=== PATIENT | female | born 1960 | race Hispanic/Latino ===

== ENCOUNTER 2021-10-19 19:16 | Emergency (ER) | payer SELFPAY ==
[2021-10-19] MEDS ORDERED: Dextrose 50% Abboject 50 ML SYRINGE ONE ×2 (19:37→21:07)
[2021-10-19] MEDS ORDERED: Sodium Chloride 0.9% 1,000 ML ONE ×2 (19:37→20:20)
[2021-10-19] MEDS ORDERED: Acetaminophen 650 MG Suppository ONE (19:52)
[2021-10-19 19:56] LABS: Base Excess-Venous -4.9 mmol/L (-2.0 to 3.0); Bicarbonate (HCO3v) 16.4 mmol/L (22.0-28.0); CO2 Tension (PvCO2) 22.3 mmHg (42.0-51.0); Calcium, Ionized 1.05 mmol/L (1.15-1.33); Chloride 105 mmol/L (98-107); Hemoglobin - Calc 14.6 g/dL (12.0-16.0); Potassium 3.5 mmol/L (3.5-5.1); Sodium 139 mmol/L (138-145); T. Carbon Dioxide 17.1 mmol/L (22.0-28.0); vO2 Saturation-calc 91.5 % (60.0-85.0)
[2021-10-19 20:02] LABS: ALT (SGPT) 59 U/L (8-55); AST (SGOT) 166 U/L (5-34); Albumin 2.2 g/dL (3.5-5.0); Alkaline Phosphatase 288 U/L (40-110); Anion Gap 21 mmol/L (10-20); BUN (Urea Nitrogen) 29 mg/dL (9.8-20.1); Bilirubin, Total 13.7 mg/dL (0.2-1.2); Calc. Creatinine Clearance 0 mL/min (70-130); Calcium 7.9 mg/dL (7.8-10.44); Carbon Dioxide 15 mmol/L (22-29); Chloride 104 mmol/L (98-107); Globulin 4.1 g/dL (2.4-3.5); Glucose 72 mg/dL (70-105); Lipase 54 U/L (8-78); Potassium 3.5 mmol/L (3.5-5.1); Protein, Total 6.3 g/dL (6.0-8.3); Sodium 136 mmol/L (136-145)
[2021-10-19 20:10] LABS: Acetaminophen Less than 10.0 mcg/mL (10.0-30.0); Alcohol Less than 10 mg/dL (Less than 10); Salicylate Less than 8.0 mg/dL (15.0-30.0)
[2021-10-19 20:15] LABS: Hemoglobin 13.4 g/dL (12.0-16.0); Manual Diff?? YES; Mean Corpuscular Hemoglobin 32.9 pg (27.0-31.0); Mean Corpuscular Volume 99.7 fL (78.0-98.0); Mean Platelet Volume 13.4 fL (7.4-10.4); Platelet Count 70 thou/uL (130-400); RBC Distribution Width 14.2 % (11.5-14.5); Red Blood Cell (RBC) Count 4.07 mill/uL (4.20-5.40); White Blood Cell (WBC) Count 9.8 thou/uL (4.8-10.8)
[2021-10-19 20:16] LABS: Eosinophils 2 % (0-10); Lymphocytes 19 % (21-51); MDiff Complete? YES; Monocytes 2 % (0-10); Neutrophil 76 % (42-75); Platelet Morphology Comment Appears Decreased; RBC Morphology N
[2021-10-19] MEDS ORDERED: Sodium Chloride 0.9% 100 ML ONE (20:19)
[2021-10-19] MEDS ORDERED: Cefepime 2 GM VIAL ONE (20:19)
[2021-10-19 20:21] LABS: INR-International Normal Ratio 3.5; PTT 55.2 sec (22.9-36.1); Prothrombin Time 35.7 sec (12.0-14.7)
[2021-10-19] MEDS ORDERED: Vancomycin HCl 750 MG VIAL ONE (20:58)
[2021-10-19] MEDS ORDERED: Sodium Chloride 0.9% 500 ML ONE (20:59)
[2021-10-19 21:12] LABS: SARS-CoV-2 NAA Rapid Test Not Detected (NotDetected)
== END 2021-10-19 21:21 | disposition short-term general hospital (02) ==
LOC: NAV ERS 19:16
DX: A41.9 Sepsis, unspecified organism (principal); R74.02 Elevation of levels of lactic acid dehydrogenase [LDH]; K72.10 Chronic hepatic failure without coma; R00.0 Tachycardia, unspecified; R79.1 Abnormal coagulation profile; D69.6 Thrombocytopenia, unspecified; Z20.822 Contact with and (suspected) exposure to COVID-19; Z87.19 Personal history of other diseases of the digestive system
CPT/HCPCS: 36416; 51702; 70450; 71045; 74176; 80053; 80307; 82140; 82330; 82553; 82803; 83605; 83690; 83880; 84443; 84484; 85025; 85610; 85730; 87040; 87077; 87149; 87186; 93005; 94760; 96360; 96361; 96365; 96367; 96375; 96376; J0692; J3370; J3490; J7030; J7050; J7999; U0002